=== PATIENT | male | born 1965 | race Caucasian/White ===

== ENCOUNTER 2024-11-27 09:55 | Inpatient (IN) | payer BC ==
[2024-11-27 10:02] VITALS: BMI 26.6
[2024-11-27] MEDS ORDERED: FAMOTIDINE 20 MG/50 ML IVPB 20 MG/50 ML MG IVPB ONE (11:26)
[2024-11-27] MEDS ORDERED: ACETAMINOPHEN INJECTION 100 ML ONE (12:14)
[2024-11-27] MEDS ORDERED: MAG HYDROX/AL HYDROX/SIMETH 30 ML UNIT-DOSE CUP ONE (12:15)
[2024-11-27] MEDS: ACETAMINOPHEN 1000 MG/100 ML BAG IVPB ONE (12:21)
[2024-11-27] MEDS: MAG HYDROX/AL HYDROX/SIMETH 30 ML UNIT-DOSE CUP PO ONE (12:21)
[2024-11-27] MEDS: SODIUM CHLORIDE 0.9% 500 ML INFUS.BAG IV ONE (12:22)
[2024-11-27 12:49] LABS: ABSOLUTE IMMATURE GRANULOCYTES 0.03 x10^3/uL (0.0-0.031); BASOPHILS # 0.02 x10^3/uL (0.01-0.08); EOSINOPHIL % 0.1 % (0.8-7.0); EOSINOPHILS # 0.01 x10^3/uL (0.04-0.54); HEMATOCRIT 47.3 % (40.1-51.0); MCHC 33.8 g/dl (32.3-36.5); MEAN CELL VOLUME 90.6 fl (79.0-92.2); MEAN PLT VOLUME 9.9 fl (9.4-12.4); MONOCYTE # 0.41 x10^3/uL (0.30-0.82); MONOCYTE % 3.6 % (5.3-12.2); PLATELET COUNT # 210 x10^3/uL (163-337); RDW 12.6 % (12.2-16.4)
[2024-11-27 12:51] LABS: INR 0.95 (0.83-1.09); PROTHROMBIN TIME (PATIENT) 10.4 SEC (9.7-13.0)
[2024-11-27 12:54] LABS: ACTIVATED PTT 32.2 SECONDS (25.2-36.5)
[2024-11-27 13:04] LABS: POTASSIUM 4.3 mmol/L (3.5-5.1)
[2024-11-27 13:06] LABS: CALCIUM 9.9 mg/dL (8.5-10.1)
[2024-11-27 13:07] LABS: ALBUMIN 3.9 g/dl (3.4-5.0); BLOOD UREA NITROGEN 15.2 mg/dL (7-18); MAGNESIUM 2.2 mg/dL (1.8-2.4)
[2024-11-27 13:10] LABS: CREATININE 0.8 mg/dL (0.55-1.3)
[2024-11-27 13:11] LABS: BILIRUBIN,TOTAL 0.7 mg/dL (0.2-1)
[2024-11-27 13:12] LABS: TOT PROT 7.2 g/dl (6.4-8.2)
[2024-11-27 14:25] LABS: PH,URINE 7.5 (5.0-8.0); URINE APPEARANCE CLEAR; URINE BILIRUBIN NEGATIVE (NEGATIVE); URINE COLOR YELLOW; URINE GLUCOSE (UA) NEGATIVE (NEGATIVE); URINE KETONE TRACE (NEGATIVE); URINE LEUK ESTERASE NEGATIVE (NEGATIVE); URINE NITRITE NEGATIVE (NEGATIVE); URINE PROTEIN NEGATIVE (NEGATIVE); URINE UROBILINOGEN 0.2 mg/dL (0.2-1.0)
[2024-11-27] MEDS ORDERED: morphine SULFATE 4 MG/ML VIAL ONE ×2 (15:31→21:10)
[2024-11-27] MEDS: morphine CARPU-JECT 4 MG/1 ML DISP.SYRIN IVPUSH ONE ×2 (15:36→21:20)
[2024-11-27] MEDS ORDERED: ONDANSETRON 4 MG/2 ML VIAL ONE (21:11)
[2024-11-27] MEDS: ONDANSETRON 4 MG/2 ML VIAL IVPUSH ONE (21:20)
[2024-11-27] MEDS ORDERED: MORPHINE SULFATE 2 MG/ML SYRINGE IVPUSH PRN (23:04)
[2024-11-28] MEDS: SODIUM CHLORIDE 1,000 ML IV SCH (00:35)
[2024-11-28] MEDS ORDERED: ONDANSETRON 4 MG/2 ML VIAL IVPUSH PRN (01:06)
[2024-11-28] MEDS: ENOXAPARIN NA (PORCINE) 40 MG/0.4 ML DISP.SYRIN SQ SCH (09:10)
[2024-11-28 09:12] LABS: ABSOLUTE IMMATURE GRANULOCYTES 0.04 x10^3/uL (0.0-0.031); BASOPHILS # 0.03 x10^3/uL (0.01-0.08); EOSINOPHILS # 0.09 x10^3/uL (0.04-0.54); HEMATOCRIT 44.4 % (40.1-51.0); MCHC 33.8 g/dl (32.3-36.5); MEAN CELL VOLUME 91.7 fl (79.0-92.2); MEAN PLT VOLUME 9.8 fl (9.4-12.4); MONOCYTE # 0.75 x10^3/uL (0.30-0.82); MONOCYTE % 8.3 % (5.3-12.2); PLATELET COUNT # 196 x10^3/uL (163-337); RDW 12.7 % (12.2-16.4)
[2024-11-28 09:46] LABS: POTASSIUM 3.9 mmol/L (3.5-5.1)
[2024-11-28 09:55] LABS: ALBUMIN 3.3 g/dl (3.4-5.0); CALCIUM 9.3 mg/dL (8.5-10.1)
[2024-11-28 09:56] LABS: BLOOD UREA NITROGEN 13.4 mg/dL (7-18); MAGNESIUM 2.3 mg/dL (1.8-2.4)
[2024-11-28 09:58] LABS: PHOSPHOROUS 2.7 mg/dL (2.5-4.9)
[2024-11-28 09:59] LABS: BILIRUBIN,TOTAL 0.9 mg/dL (0.2-1); CREATININE 0.8 mg/dL (0.55-1.3)
[2024-11-28 10:00] LABS: TOT PROT 6.4 g/dl (6.4-8.2)
[2024-11-28] MEDS: SODIUM CHLORIDE 500 ML IV ONE (11:26)
[2024-11-28] MEDS: ACETAMINOPHEN 1000 MG/100 ML BAG IVPB PRN (13:14)
[2024-11-28] MEDS: IOHEXOL (OMNIPAQUE IV) 350 MG/ML - 100 ML BOTTLE PO ONE (15:14)
[2024-11-28] MEDS ORDERED: KETOROLAC TROMETHAMINE 30 MG/1 ML VIAL IVPUSH PRN (20:19)
[2024-11-28] MEDS ORDERED: ACETAMINOPHEN 1000 MG/100 ML BAG IVPB PRN (20:20)
[2024-11-29 06:40] VITALS: RESP 18
[2024-11-29 09:07] LABS: ABSOLUTE IMMATURE GRANULOCYTES 0.01 x10^3/uL (0.0-0.031); BASOPHILS # 0.04 x10^3/uL (0.01-0.08); EOSINOPHIL % 3.6 % (0.8-7.0); EOSINOPHILS # 0.22 x10^3/uL (0.04-0.54); HEMATOCRIT 44.2 % (40.1-51.0); HEMOGLOBIN 14.8 g/dL (13.7-17.5); MCHC 33.5 g/dl (32.3-36.5); MEAN CELL VOLUME 92.5 fl (79.0-92.2); MEAN PLT VOLUME 9.6 fl (9.4-12.4); MONOCYTE # 0.49 x10^3/uL (0.30-0.82); MONOCYTE % 7.9 % (5.3-12.2); PLATELET COUNT # 178 x10^3/uL (163-337); RDW 12.5 % (12.2-16.4)
[2024-11-29 09:42] LABS: POTASSIUM 3.6 mmol/L (3.5-5.1)
[2024-11-29 09:47] LABS: ALBUMIN 3.3 g/dl (3.4-5.0)
[2024-11-29 09:50] LABS: BLOOD UREA NITROGEN 12.7 mg/dL (7-18)
[2024-11-29 09:52] LABS: PHOSPHOROUS 2.8 mg/dL (2.5-4.9)
[2024-11-29 09:53] LABS: TOT PROT 6.2 g/dl (6.4-8.2)
[2024-11-29 09:54] LABS: CREATININE 0.8 mg/dL (0.55-1.3)
[2024-11-29 15:28] VITALS: BP 152/91; PULSE 73; TEMP 98.5
== END 2024-11-29 15:27 | disposition home or self-care (01) | DRG 390 ==
LOC: JER 09:55 → JERBED 20:11 → J5S 11-28 00:22
PROVIDERS: ADMIT Internal Medicine; ATTEND Internal Medicine
DX: K56.609 Unspecified intestinal obstruction, unspecified as to partial versus complete obstruction (principal); K21.9 Gastro-esophageal reflux disease without esophagitis; R10.9 Unspecified abdominal pain
CPT/HCPCS: 36415; 74019-TC-FY; 74177-TC; 80053; 81003; 83605; 83690; 83735; 84100; 85025; 85610; 85730; 86850; 86900; 86901; 87086; 93005; 93010; 99285-25; J0131; Q9967